=== PATIENT | male | born 1990 | race Caucasian/White ===

== ENCOUNTER 2017-09-06 14:02 | Emergency (ER) | payer BC ==
[2017-09-06] MEDS ORDERED: IV NORMAL SALINE 1,000ML 1,000 ML IV SCH (14:35)
[2017-09-06] MEDS ORDERED: ONDANSETRON PF 4 MG/2 ML VIAL. ONE (15:37)
--- NOTE | 2017-09-06 15:37 | PHYS DOC ---
General Chief Complaint: LACERATION/AVULSION Stated Complaint: FOOT LAC Time Seen by MD: 14:35 Source: patient Exam Limitations: no limitations Problems: History of Present Illness Initial Comments Patient is 26-year-old male who comes in the ED complaining of left foot injury. Patient states that he was using a chain saw cutting wood when it accidentally slipped cutting through his leather boot and sock and into the medial aspect of his left foot. He states that the pain was severe and bleeding intense initially , he removed his boot and sock prior to arrival and upon ED arrival no pulsatile or active bleeding was present just oozing. Patient is able to move his great toe but has some difficulty with abduction his hallux and internal rotation of his left foot. He is unable to bear weight due to pain and states his tetanus status is up-to-date. 1 L normal saline IV bolus, Rocephin IV 1 g, and fentanyl 50 g incrementally dosed when necessary protocol initiated. Onset: just prior to arrival Severity: severe Pain/Injury Location: left foot Method of Injury: incised Modifying Factors: worse with jarring, worse with movement, improves with rest Allergies: Coded Allergies: No Known Drug Allergies (Unverified , 09/06/17) Past Medical History Medical History: no pertinent history Surgical History: noncontributory Social History Smoker: non-smoker Alcohol: none Drugs: none Review of Systems Constitutional: denies chills, denies fever, denies malaise Respiratory: denies cough, denies shortness of breath Cardiovascular: denies chest pain, denies palpitations Gastrointestinal: denies nausea (ordered along with a), denies vomiting Musculoskeletal: see HPI Skin: see HPI Psychiatric/Neurological: see HPI Physical Exam General Appearance: WD/WN, moderate distress Neck: non-tender, supple Cardiovascular/Respiratory: normal peripheral pulses, no respiratory distress Back: no CVA tenderness, no vertebral tenderness Ankles: bilateral ankle non-tender, bilateral ankle normal inspection, bilateral ankle normal range of motion Feet: left foot other (approx 12 cm AP laceration overlying navicular bone w/ 1cm gapped irregular wound edges, no pulsatile bleeding, there is surrounding contused tissue) Neurologic/Tendon: responds to pain, tendon function deficit (difficulty abducting hallux) Psychiatric: alert, oriented x 3 Orders, Labs, Meds Left foot: Large laceration noted at the medial aspect of the left foot overlying the navicular bone, in the AP view the laceration does extend to at least the level of the bone. Interpreted by me 1352: I discussed the patient with on-call orthopedic surgeon Dr. Shaw. After thorough discussion of the patient she requested that the patient be sent to a trauma center as she does not specialize in foot repair specifically tendon repair. I've asked staff to call . 1616: I discussed the patient with the triage nurse, she will discuss the patient with the trauma surgeon Dr. Richey and call back shortly. 1635: I discussed the patient with Lisa once again, triage nurse. She reports that Dr. Mckeon orthopedic surgeon has accept the patient to the emergency department for further evaluation and treatment. Patient will remain nothing by mouth. Patient received 1 L normal saline IV bolus, Rocephin 1 g IV, and fentanyl intravenously in the emergency department. Departure Time of Disposition: 16:18 Disposition: 02 XFER SHT-TRM HOSP Diagnosis: left foot chainsaw laceration injury with bony inv Condition: STABLE Additional Instructions: EMS transfer to ELLIOT CHAUDHARY DO Sep 06, 2017 15:37
[2017-09-06] MEDS ORDERED: oxyCODONE/APAP 10/325 1 TAB TABLET PO ONE (16:00)
[2017-09-06] MEDS ORDERED: ONDANSETRON PF 4 MG/2 ML VIAL. IV ONE (16:00)
[2017-09-06] MEDS ORDERED: cefTRIAXone IV Push 1 GM VIAL. IVP ONE (16:00)
[2017-09-06 16:58] VITALS: BP 119/66
--- NOTE | 2017-09-07 07:53 | RAD ---
EXAM: Left foot, 3 views. HISTORY: Chain saw injury. COMPARISON: None. FINDINGS: Frontal, lateral and oblique views of the left foot are obtained. There is a soft tissue laceration along the medial mid foot. No retained foreign body or underlying fracture is seen.. IMPRESSION: Soft tissue laceration along the medial midfoot.
== END 2017-09-06 17:35 | disposition short-term general hospital (02) ==
LOC: ER 14:02
DX: S91.312A Laceration without foreign body, left foot, initial encounter (principal); W29.3XXA Contact with powered garden and outdoor hand tools and machinery, initial encounter; Y93.89 Activity, other specified; Y99.8 Other external cause status; Y92.89 Other specified places as the place of occurrence of the external cause
CPT/HCPCS: 73630; 96361; 96374; 96375; 96376; 99285; J0696; J2405; J3010; J7030

== ENCOUNTER 2021-04-27 21:54 | Emergency (ER) | payer BC ==
[~2021-04-27] VITALS: Ht 182.9 cm; Wt 115.5 kg
--- NOTE | 2021-04-27 22:06 | PHYS DOC ---
Past History Past Medical History: No Pertinent History Alcohol Use: None Drug Use: None General Adult EDM: Chief Complaint: FOREIGN BODY HPI: HPI: ".. I was eating a beef steak.. and pice got stuck.. " .. " I ve had this h appen before.. but it always clear it self.. " " This is happening more often.." " This time I could not get it to clear..." Patient is a 30 year old male who presents with above hx and complaints steak stuck in his throat. Pt. has had frequent episodes of dysphagia with food sticking in his throat previously. Patient has never had a EGD. Has had previous diagnosis of Crohn's with diagnosed at age 18. Patient is on suppressive therapy. Patient does chew tobacco. No recent travel. No severe ill contacts. Normally healthy except for his Crohn's. Has had occasional GERD type complaints. Review of Systems: Review of Systems: Constitutional: Denies fever or chills Eyes: Denies change in visual acuity HENT: Denies nasal congestion or sore throat Respiratory: Denies cough or shortness of breath Cardiovascular: Denies chest pain or edema GI: Denies abdominal pain, nausea, vomiting, bloody stools or diarrhea. Complains of food bolus stuck in his esophagus. : Denies dysuria Musculoskeletal: Denies back pain or joint pain Integument: Denies rash Neurologic: Denies headache, focal weakness or sensory changes Endocrine: Denies polyuria or polydipsia Lymphatic: Denies swollen glands Psychiatric: Denies depression or anxiety Family History: Family History: Noncontributory Current Medications: Current Meds: See nursing for home meds Allergies: Allergies: Allergies Coded Allergies Type Severity Reaction Last Updated Verified No Known Drug Allergies 09/06/17 No Physical Exam: PE: Constitutional: Well developed, well nourished, no acute distress, non-toxic appearance. [] HENT: Normocephalic, atraumatic, bilateral external ears normal, oropharynx moist, no oral exudates, nose normal. [] Eyes: PERRLA, EOMI, conjunctiva normal, no discharge. [] Neck: Normal range of motion, no tenderness, supple, no stridor. [] Cardiovascular:Heart rate regular rhythm, no murmur [] Lungs & Thorax: Bilateral breath sounds clear to auscultation [] Abdomen: Bowel sounds normal, soft, no tenderness, no masses, no pulsatile masses. Obese. Skin: Warm, dry, no erythema, no rash. [] Back: No tenderness, no CVA tenderness. [] Extremities: No tenderness, no cyanosis, no clubbing, ROM intact, no edema. [] Neurologic: Alert and oriented X 3, normal motor function, normal sensory function, no focal deficits noted. [] Psychologic: Affect anxious , judgement normal, mood normal. [] EKG: EKG: My interpretation EKG shows a sinus rhythm at 68 bpm. Occasional PAC. No findings of acute STEMI or contralateral changes. EKG read at 2239 hrs. [] Radiology/Procedures: Radiology/Procedures: My interpretation acute abdomen film shows no acute cardiopulmonary findings. No findings of bowel obstruction or gross abnormalities. See formal report when available. [] Heart Score: C/O Chest Pain: N/A HEART Score for Chest Pain: HEART Score for Chest Pain Response (Comments) Value History Slighlty/Non-Suspicious 0 ECG Normal 0 Age < 45 0 Risk Factors No Risk Factors 0 Troponin < Normal Limit 0 Total 0 Risk Factors: Risk Factors: DM, Current or recent (<one month) smoker, HTN, HLP, family history of CAD, obesity. Risk Scores: Score 0 - 3: 2.5% MACE over next 6 weeks - Discharge Home Score 4 - 6: 20.3% MACE over next 6 weeks - Admit for Clinical Observation Score 7 - 10: 72.7% MACE over next 6 weeks - Early Invasive Strategies Course & Med Decision Making: Course & Med Decision Making Pertinent Labs and Imaging studies reviewed. (See chart for details) Patient monitored in ED. Received fluid boluses. Did receive 1 mg of glucagon IV. Shortly thereafter had passage of food bolus. Patient now able to tolerate food and water. Patient recommended to get a follow-up EGD. Will start on Pepcid 20 mg twice a day. Patient encouraged to stop tobacco use. Patient follow-up primary care. Patient avoid eating boluses with food. Particular meat. Must cut into small pieces. And chew adequately. Impression: 1. Food bolus-esophagus 2. History of Crohn's 3. Chews tobacco 4. History of dysphagia [] Dragon Disclaimer: Dragon Disclaimer: This electronic medical record was generated, in whole or in part, using a voice recognition dictation system. Departure Departure: Referrals: FRANCISCO JAVIER SWENSON (PCP) Scripts Famotidine (PEPCID) 20 Mg Tablet 1 TAB PO BID for reflux, #60 TAB 3 Refills Prov: AMANUEL GARCIA MD 04/28/21 Olive Disclaimer This chart was dictated in whole or in part using Voice Recognition software in a busy, high-work load, and often noisy Emergency Department environment. It may contain unintended and wholly unrecognized errors or omissions. AMANUEL GARCIA MD Apr 27, 2021 22:06
[2021-04-27] MEDS ORDERED: FAMOTIDINE 20 MG/2 ML VIAL IVP ONE (23:00)
[2021-04-27] MEDS ORDERED: IV RINGERS SOLUTION,LACTATED 1,000 ML IV SCH (23:00)
[2021-04-27] MEDS ORDERED: ONDANSETRON PF 4 MG/2 ML VIAL. IVP ONE (23:00)
[2021-04-27] MEDS ORDERED: GLUCAGON,HUMAN RECOMBINANT 1 MG KIT. IV ONE (23:00)
[2021-04-27 23:02] LABS: BASO % 0 % (0-3); EOS # 0.7 x10^3/uL (0.0-0.7); EOS % 8 % (0-3); HEMOGLOBIN 16.3 g/dL (13.0-17.5); LYMPH # 2.4 x10^3/uL (1.0-4.8); LYMPH % 28 % (24-48); MEAN CORPUSCULAR HEMOGLOBIN 29 pg (25-35); MEAN CORPUSCULAR HGB CONC 35 g/dL (31-37); MEAN CORPUSCULAR VOLUME 83 fL (79-100); MONO # 0.6 x10^3/uL (0.0-1.1); MONO % 7 % (0-9); NEUT # 4.9 x10^3uL (1.8-7.7); NEUT % 57 % (31-73); PLATELET COUNT 202 x10^3/uL (140-400); RED BLOOD COUNT 5.64 x10^6/uL (4.30-5.70); RED CELL DISTRIBUTION WIDTH 13.4 % (11.5-14.5); WHITE BLOOD COUNT 8.6 x10^3/uL (4.0-11.0)
[2021-04-27 23:10] LABS: CREATININE 1.4 mg/dL (0.7-1.3); GFR 59.1; POTASSIUM 3.8 mmol/L (3.5-5.1)
[2021-04-28] VITALS: BP 124/76
[2021-04-28] MEDS ORDERED: FAMO-63 PO (00:13)
--- NOTE | 2021-04-28 00:36 | EKG ---
[address] [address] Test Date: 2021-04-27 Test Time: 22:39:09 Pat Name: FINA WYNN Department: Room: Gender: M [employer] Operator: : 1990 Requested By: AMANUEL GARCIA Order Number: [id number] Reading MD: Measurements Intervals Jordan Rate: 68 P: 50 OH: 162 QRS: 64 QRSD: 90 T: 15 QT: 374 QTc: 402 Interpretive Statements SINUS RHYTHM ATRIAL PREMATURE COMPLEX(ES) OTHERWISE NORMAL ECG RI6.02 No previous ECG available for comparison
--- NOTE | 2021-04-28 04:21 | RAD ---
Acute abdominal series with PA chest: Reason for examination: Choked while eating steak. Feels stuck. Heart size is normal. Mediastinum is unremarkable. Lung quevedo are clear. No acute bony abnormalities are seen. There is no gross organomegaly. Psoas muscles are symmetric. Bowel gas pattern is nonspecific and non obstructive. No abnormal calcifications are seen. No acute bony abnormalities are present. IMPRESSION: No acute cardiopulmonary disease. Nonspecific nonobstructive bowel gas pattern. Electronically signed by: Tere Luong MD (04/28/2021 4:19 AM) AMADOU
== END 2021-04-28 00:25 | disposition home or self-care (01) ==
LOC: ER 21:54
DX: T18.128A Food in esophagus causing other injury, initial encounter (principal); K50.90 Crohn's disease, unspecified, without complications; F17.220 Nicotine dependence, chewing tobacco, uncomplicated; Z20.822 Contact with and (suspected) exposure to COVID-19; X58.XXXA Exposure to other specified factors, initial encounter; Y93.89 Activity, other specified; Y92.89 Other specified places as the place of occurrence of the external cause; Y99.8 Other external cause status
CPT/HCPCS: 36415; 74022; 80048; 82150; 82550; 83690; 84484; 85025; 87426; 93005; 96361; 96374; 96375; 99285; J1610; J2405; J3490; J7120